=== PATIENT | male | born 1950 | race Caucasian/White ===

== ENCOUNTER 2017-02-25 09:43 | Day surgery (SDC) | payer OTHER ==
[~2017-02-25 09:43] MED LIST: ALPR0.5T3 PO; AMLO5CAP PO; LOVA1TAB47 PO; NITR.4 SL; OMEP20TA PO; PLAV75TA PO; TOPR25TA2 PO
[2017-02-25] MEDS ORDERED: CHLORHEXIDINE GLUCONATE 2 % 1 PACK (2 CLOTHS) TOPICAL SCH (10:45)
[2017-02-25] MEDS ORDERED: POVIDONE IODINE 5% (ANTISEPSIS KIT) 4 APPLICATIONS EACH NARE SCH (10:45)
[2017-02-25] MEDS ORDERED: NO Heparin, Lovenox, Coumadin at least 12 hours prior to procedure. PRN (10:45)
[2017-02-25] MEDS ORDERED: MUPIROCIN 2% OINT 1 APPLIC/GM SYR NASAL SCH (10:45)
[2017-02-25] MEDS ORDERED: ceFAZolin 2 GM PREMIX 50 ML IV SCH (10:45)
[2017-02-25] MEDS ORDERED: NS 1000 ML IV SCH (11:00)
[2017-02-25] MEDS ORDERED: FLUO0.05 TOPICAL (11:05)
[2017-02-25] MEDS ORDERED: VALA1TAB PO (11:11)
[2017-02-25] MEDS ORDERED: LOSA50TA PO (11:11)
[2017-02-25] MEDS ORDERED: LORA1TAB12 PO (11:11)
[2017-02-25] MEDS ORDERED: TRIAM.1%T TOPICAL (11:11)
[2017-02-25] MEDS ORDERED: HYDR25TA5 PO (11:11)
[2017-02-25] MEDS ORDERED: PLAV75TA29 PO (11:11)
[2017-02-25] MEDS ORDERED: OMEP20TA PO (11:11)
[2017-02-25] MEDS ORDERED: METF500T PO (11:11)
[2017-02-25] MEDS ORDERED: NITR1SUB3 SL (11:11)
--- NOTE | 2017-02-25 13:27 | MA ---
cc: MARIN YANEZ MD, BETH A. MD DATE 02/25/2017 PROCEDURE PERFORMED Loop recorder insertion. PERFORMING PHYSICIAN Marin Yanez MD DESCRIPTION OF PROCEDURE The patient was brought to the DOC unit in the postabsorptive state. After informed consent was obtained, a [facility] LINQ loop recorder was inserted subcutaneously in the left chest. The patient tolerated procedure well without any apparent complications. Tachybrady pause and atrial fibrillation detection was enabled. Initial R-wave was 0.39 mV. The serial number was [id number]. MD FAY Mills/BRYAN /1:06 PM /1:22 PM
== END 2017-02-25 14:22 | disposition home or self-care (01) ==
LOC: HDOC 09:43 → HDIC 09:44 → HDOC 14:22
PROVIDERS: ATTEND Nuclear Medicine Nuclear Cardiology
DX: G45.9 Transient cerebral ischemic attack, unspecified (principal); I25.10 Atherosclerotic heart disease of native coronary artery without angina pectoris; E11.9 Type 2 diabetes mellitus without complications; E78.5 Hyperlipidemia, unspecified; I11.9 Hypertensive heart disease without heart failure; I45.10 Unspecified right bundle-branch block; K70.10 Alcoholic hepatitis without ascites; F10.10 Alcohol abuse, uncomplicated; E66.9 Obesity, unspecified; Z68.32 Body mass index [BMI] 32.0-32.9, adult; Z87.891 Personal history of nicotine dependence; Z79.01 Long term (current) use of anticoagulants; Z79.84 Long term (current) use of oral hypoglycemic drugs; Z79.899 Other long term (current) drug therapy
CPT/HCPCS: 33282; C1764; J0690